=== PATIENT | female | born 1975 | race Caucasian/White ===

== ENCOUNTER → 2017-01-25 | Outpatient (CLI) | payer BC ==
--- NOTE | 2017-01-25 10:37 | MM ---
Reason for exam: screening (asymptomatic). History: Took hormonal contraceptives for 15 years beginning at age 21. Physical Findings: Nurse did not find any significant physical abnormalities on exam. MG Screening Mammo w CAD Bilateral CC and MLO view(s) were taken. The breast tissue is heterogeneously dense. This may lower the sensitivity of mammography. There is no discrete abnormality. These results were verbally communicated with the patient and result sheet given to the patient on 01/25/17. ASSESSMENT: Negative, BI-RAD 1 RECOMMENDATION: Routine screening mammogram of both breasts in 1 year.
== END | disposition home or self-care (01) ==
LOC: RADMAMWWP 09:38
PROVIDERS: ATTEND Obstetrics & Gynecology
DX: Z12.31 Encounter for screening mammogram for malignant neoplasm of breast (principal)

== ENCOUNTER → 2018-03-08 | Outpatient (CLI) | payer BC ==
--- NOTE | 2018-03-09 15:12 | MM ---
Reason for exam: screening (asymptomatic). Last mammogram was performed 1 year and 1 month ago. History: Took hormonal contraceptives for 15 years beginning at age 21. Physical Findings: A clinical breast exam by your physician is recommended on an annual basis and results should be correlated with mammographic findings. MG Screening Mammo w CAD Bilateral CC and MLO view(s) were taken. Prior study comparison: January 25, 2017, bilateral MG screening mammo w CAD. The breast tissue is heterogeneously dense. This may lower the sensitivity of mammography. There is no discrete abnormality. No significant changes when compared with prior studies. ASSESSMENT: Negative, BI-RAD 1 RECOMMENDATION: Routine screening mammogram of both breasts in 1 year.
== END | disposition home or self-care (01) ==
LOC: RADMAMWWP 16:21
PROVIDERS: ATTEND Obstetrics & Gynecology
DX: Z12.31 Encounter for screening mammogram for malignant neoplasm of breast (principal)
CPT/HCPCS: 77067

== ENCOUNTER → 2020-05-28 | Outpatient (CLI) | payer BC ==
--- NOTE | 2020-05-28 11:33 | US ---
EXAMINATION TYPE: US abdomen comp/pelvis limited DATE OF EXAM: 05/28/2020 COMPARISON: NONE CLINICAL HISTORY: R14.0 Abdominal distension (gaseous). left upper quadrant/shoulder pain on and off EXAM MEASUREMENTS: Liver Length: 13.4 cm Gallbladder Wall: 0.2 cm CBD: 0.4 cm Spleen: 10.9 cm Right Kidney: 9.1 x 3.7 x 4.4 cm Left Kidney: 9.9 x 5.3 x 5.6 cm *bowel gas limits exam* Pancreas: limited views appear wnl Liver: Cystic focus is present within the right lobe measuring 1.4 cm in greatest dimension Gallbladder: wnl CBD: wnl Spleen: wnl Right Kidney: wnl Left Kidney: wnl Upper IVC: wnl Abd Aorta: wnl Bladder: not fully distended IMPRESSION: Probable liver cyst.
== END | disposition home or self-care (01) ==
LOC: RADUSWWP 06:59
PROVIDERS: ATTEND Family Medicine
DX: R14.0 Abdominal distension (gaseous) (principal)
CPT/HCPCS: 76700; 76857

== ENCOUNTER → 2020-10-09 | Outpatient (CLI) | payer BC ==
--- NOTE | 2020-10-13 10:29 | MM ---
Reason for exam: screening (asymptomatic). Last mammogram was performed 2 years and 7 months ago. History: Took hormonal contraceptives for 15 years beginning at age 21. Physical Findings: A clinical breast exam by your physician is recommended on an annual basis and results should be correlated with mammographic findings. MG Screening Mammo w CAD Bilateral CC and MLO view(s) were taken. Prior study comparison: March 08, 2018, bilateral MG screening mammo w CAD. January 25, 2017, bilateral MG screening mammo w CAD. The breast tissue is heterogeneously dense. This may lower the sensitivity of mammography. Regional calcifications medial left breast are unchanged. No significant changes when compared with prior studies. ASSESSMENT: Benign, BI-RAD 2 RECOMMENDATION: Routine screening mammogram of both breasts in 1 year. Patient should continue monthly self breast exams. A negative report should not preclude additional follow up of suspicious palpable abnormalities.
== END | disposition home or self-care (01) ==
LOC: RADMAMWWP 15:21
PROVIDERS: ATTEND Family Medicine
DX: Z12.31 Encounter for screening mammogram for malignant neoplasm of breast (principal)
CPT/HCPCS: 77067

== ENCOUNTER → 2021-10-12 | Outpatient (CLI) | payer BC ==
--- NOTE | 2021-10-12 19:16 | US ---
EXAMINATION TYPE: US liver DATE OF EXAM: 10/12/2021 COMPARISON: US: 03/09/2020 CLINICAL HISTORY: Liver cyst. Followup. EXAM MEASUREMENTS: Liver Length: 14.0 cm Gallbladder Wall: 0.5 cm CBD: 0.5 cm Right Kidney: 10.4 x 4.7 x 3.8 cm Pancreas: wnl Liver: right lobe cyst seen near diaphragm = 1.9 x 1.7 x 1.9 cm which is not seen on prior in 2020. And another smaller right lobe cyst = 1.4 x 1.1x 0.8cm which is similar to prior in 2020. Both of t hese do not demonstrate internal color Doppler flow. Gallbladder: wnl Evidence for sonographic Montalvo's sign: no CBD: wnl Right Kidney: No hydronephrosis or masses seen IMPRESSION: Hepatic cysts measuring up to 1.9 cm without internal color Doppler flow. The smaller of which is see n on prior ultrasound in 2020 measuring up to 1.4 cm and is stable.
--- NOTE | 2021-10-14 09:37 | MM ---
Reason for exam: screening (asymptomatic). Last mammogram was performed 1 year ago. History: Took hormonal contraceptives for 15 years beginning at age 21. Physical Findings: A clinical breast exam by your physician is recommended on an annual basis and results should be correlated with mammographic findings. MG Screening Mammo w CAD Bilateral CC and MLO view(s) were taken. Prior study comparison: October 09, 2020, bilateral MG screening mammo w CAD. March 08, 2018, bilateral MG screening mammo w CAD. The breast tissue is heterogeneously dense. This may lower the sensitivity of mammography. There is no discrete abnormality. ASSESSMENT: Negative, BI-RAD 1 RECOMMENDATION: Routine screening mammogram of both breasts in 1 year. Some consider bilateral ultrasound surveillance in patient with extremely dense fibroglandular tissue.
== END | disposition home or self-care (01) ==
LOC: RADMAMWWP 12:37
PROVIDERS: ATTEND Family Medicine
DX: Z12.31 Encounter for screening mammogram for malignant neoplasm of breast (principal); K76.89 Other specified diseases of liver
CPT/HCPCS: 76705; 77067

== ENCOUNTER → 2023-03-03 | Outpatient (CLI) | payer BC ==
--- NOTE | 2023-03-03 22:50 | MM ---
Reason for Exam: Screening (asymptomatic). Last mammogram was performed 1 year(s) and 5 month(s) ago. Patient History: Menarche at age 17. First Full-Term at age 27. Hormonal Contraceptives for 15 years from age 21 until age 36. Last menstrual period: 02/17/2023 Risk Values: Nivia 5 year model risk: 0.9%. NCI Lifetime model risk: 9.5%. Prior Study Comparison: 03/08/2018 Bilateral Screening Mammogram, [facility]. 10/09/2020 Bilateral Screening Mammogram, [facility]. 10/12/2021 Bilateral Screening Mammogram, [facility]. Tissue Density: The breast tissue is heterogeneously dense. This may lower the sensitivity of mammography. Findings: Analyzed By CAD. Scattered benign regional punctate calcifications remain unchanged. There is no suspicious group of microcalcifications or new suspicious mass in either breast. Overall Assessment: Benign, BI-RAD 2 Management: Screening Mammogram of both breasts in 1 year. . Patient should continue monthly self-breast exams. A clinical breast exam by your physician is recommended on an annual basis. This exam should not preclude additional follow-up of suspicious palpable abnormalities. Note on Nivia scores and lifetime risk: 1. A Nivia score greater than 3% is considered moderate risk. If this is the case, consider specialist referral to assess eligibility for a risk reducing agent. 2. If overall lifetime risk for the development of breast cancer is 20% or higher, the patient may qualify for future screening with alternating mammogram and breast MRI. Electronically signed and approved by: Lubna Mckeon M.D. Radiologist
== END | disposition home or self-care (01) ==
LOC: RADMAMWWP 07:10
PROVIDERS: ATTEND Family Medicine
DX: Z12.31 Encounter for screening mammogram for malignant neoplasm of breast (principal)
CPT/HCPCS: 77067

== ENCOUNTER → 2023-03-03 | Outpatient (CLI) | payer BC ==
--- NOTE | 2023-03-03 22:14 | US ---
EXAMINATION TYPE: US liver DATE OF EXAM: 03/03/2023 COMPARISON: 10/12/2021 CLINICAL INDICATION: Female, 48 years old with history of K76.9 liver disease; Follow up liver cyst TECHNIQUE: Multiple sonographic images of the right upper quadrant are obtained. FINDINGS: EXAM MEASUREMENTS: Liver Length: 12.5 cm Gallbladder Wall: 0.2 cm CBD: 1.0 cm Right Kidney: 10.2 x 4.2 x 4.5 cm Pancreas: Only a small portion of the pancreatic neck and body are seen. Remainder is obscured by hermila wel gas shadowing. Liver: 1.6 x 1.4 x 1.6cm benign cyst right lobe Gallbladder: wnl Evidence for sonographic Montalvo's sign: no CBD: dilated Right Kidney: wnl IMPRESSION: 1. Bile duct dilated up to 1.0 cm. Measured 5 mm on the 2021 exam. Correlate with alkaline phosphatas e and bilirubin levels to exclude biliary obstruction. ERCP or MRCP as clinically indicated. 2. A benign 1.6 cm right liver lobe cyst. Previously measuring 1.4 cm. The second cyst near the right hepatic dome is not clearly seen.
== END | disposition home or self-care (01) ==
LOC: RADUSWWP 07:05
PROVIDERS: ATTEND Family Medicine
DX: K76.9 Liver disease, unspecified (principal); K76.89 Other specified diseases of liver; K83.8 Other specified diseases of biliary tract
CPT/HCPCS: 76705

== ENCOUNTER → 2023-05-30 | Outpatient (CLI) | payer BC ==
--- NOTE | 2023-05-31 17:43 | MR ---
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 COMPARISON: 03/03/2023 ultrasound. TECHNIQUE: Multi planar, T2-weighted imaging with and without fat saturation and chemical shift imag ing was performed of the abdomen. Then, heavily T2 weighted imaging (half-Fourier acquisition single- shot turbo spin-echo) was utilized in order to study the biliary system. Maximum intensity projectio n images were reconstructed from the original data of the biliary tree. 3D images were created on a [employer] work station. No Gadolinium given. FINDINGS: Lower Thorax: No evidence for acute process. MRCP: * The intrahepatic ducts have a normal appearance. * The common bile duct at the level of the pancreatic head measures 6r mm in size. * The common hepatic duct measures 6 mm in size. * The pancreatic duct is is within normal limits with pancreatic divisum morphology. * The gallbladder appears unremarkable. Abdomen: Liver: Simple appearing high T2 hepatic cysts are present in the large right hepatic lobe measuring u p to 15 mm. Signal dropout on chemical shift of phase imaging. Spleen: Unremarkable. Adrenal glands: Unremarkable. Kidneys: High T2 probable sub-4 mm renal cyst bilaterally. Right renal Stomach and Bowel: Unremarkable as visualized. Peritoneum: No evidence of pneumoperitoneum or free fluid. Vasculature: Unremarkable. No aortic aneurysm. Musculoskeletal: The osseous structures appear intact. Lymph Nodes: No gross evidence for lymphadenopathy. Abdominal wall: Buccal hernia. IMPRESSION: 1. Biliary dilation of the common duct on prior ultrasound is not redemonstrated. The bile duct is w ithin normal limits on today's exam. No evidence to suggest ductal stricture, choledocholithiasis, or biliary ductal dilatation. 2. Pancreatic divisum. 3. Mild hepatic steatosis.
== END | disposition home or self-care (01) ==
LOC: RADMRIMAIN 07:50
PROVIDERS: ATTEND Internal Medicine Gastroenterology
DX: K83.9 Disease of biliary tract, unspecified (principal); K76.0 Fatty (change of) liver, not elsewhere classified; K86.89 Other specified diseases of pancreas
CPT/HCPCS: 74181

== ENCOUNTER → 2024-04-18 | Outpatient (CLI) | payer BC ==
--- NOTE | 2024-04-19 12:07 | MM ---
Reason for Exam: Screening (asymptomatic). Last mammogram was performed 1 year(s) and 1 month(s) ago. Patient History: Menarche at age 17. First Full-Term at age 27. Perimenopausal. Hormonal Contraceptives for 15 years from age 21 until age 36. Last menstrual period: 04/03/2024 Risk Values: Nivia 5 year model risk: 0.9%. NCI Lifetime model risk: 9.3%. Prior Study Comparison: 10/09/2020 Bilateral Screening Mammogram, [facility]. 10/12/2021 Bilateral Screening Mammogram, [facility]. 03/03/2023 Bilateral MG screening mammo w CAD, [facility]. Tissue Density: The breasts are heterogeneously dense, which may obscure small masses. Findings: Analyzed By CAD. Right breast: There is no suspicious group of microcalcifications or new suspicious mass. Left breast: Asymmetry CC view posterior nipple line 7.8 cm amenable and more laterally 6.4 cm the nipple on CT. Asymmetry MLO view posterior nipple line possibly correlating to 7.8 cm lesion. Overall Assessment: Incomplete: need additional imaging evaluation, BI-RAD 0 Management: Diagnostic Mammogram of the left breast. [facility] will attempt to contact patient to return for supplemental views and ultrasound if indicated. Patient should continue monthly self-breast exams. A clinical breast exam by your physician is recommended on an annual basis. This exam should not preclude additional follow-up of suspicious palpable abnormalities. Note on Nivia scores and lifetime risk: 1. A Nivia score greater than 3% is considered moderate risk. If this is the case, consider specialist referral to assess eligibility for a risk reducing agent. 2. If overall lifetime risk for the development of breast cancer is 20% or higher, the patient may qualify for future screening with alternating mammogram and breast MRI. [facility], , 04/19/2024 12:04 PM. Electronically signed and approved by: Robert Mcdonald DO
== END | disposition home or self-care (01) ==
LOC: RADMAMWWP 15:48
PROVIDERS: ATTEND Family Medicine
DX: Z12.31 Encounter for screening mammogram for malignant neoplasm of breast (principal); R92.333 Mammographic heterogeneous density, bilateral breasts
CPT/HCPCS: 77067

== ENCOUNTER → 2024-04-24 | Outpatient (CLI) | payer BC ==
--- NOTE | 2024-04-24 09:11 | MM ---
Reason for Exam: Additional evaluation requested from abnormal screening. Last screening mammogram was performed less than 1 month ago. Patient History: Menarche at age 17. First Full-Term at age 27. Perimenopausal. Hormonal Contraceptives for 15 years from age 21 until age 36. Last menstrual period: 04/20/2024 Risk Values: Nivia 5 year model risk: 0.9%. NCI Lifetime model risk: 9.3%. Prior Study Comparison: 10/12/2021 Bilateral Screening Mammogram, [facility]. 03/03/2023 Bilateral MG screening mammo w CAD, [facility]. 04/18/2024 Bilateral MG screening mammo w CAD, [facility]. Tissue Density: Left: The breasts are heterogeneously dense, which may obscure small masses. Findings: Analyzed By CAD. Pattern appears stable. On compression no persistent focal asymmetry is evident. No suspicious groups of microcalcifications, spiculated or lobular masses, architectural distortion or other secondary signs of malignancy are mammographically apparent. Overall Assessment: Probably benign, BI-RAD 3 Management: Diagnostic Mammogram of the left breast in 6 months. A negative mammogram report should not preclude additional follow up of suspicious palpable abnormalities. Patient should continue monthly self breast exam. A clinical breast exam by your physician is recommended on an annual basis and results should be correlated with mammographic findings. Note on Nivia scores and lifetime risk: 1. A Nivia score greater than 3% is considered moderate risk. If this is the case, consider specialist referral to assess eligibility for a risk reducing agent. 2. If overall lifetime risk for the development of breast cancer is 20% or higher, the patient may qualify for future screening with alternating mammogram and breast MRI. [facility], , 04/24/2024 9:08 AM. Electronically signed and approved by: Brad Pederson D.O. Radiologis
== END | disposition home or self-care (01) ==
LOC: RADMAMWWP 08:33
PROVIDERS: ATTEND Family Medicine
DX: R92.8 Other abnormal and inconclusive findings on diagnostic imaging of breast (principal); R92.332 Mammographic heterogeneous density, left breast
CPT/HCPCS: 77061; 77065